=== PATIENT | female | born 1975 | race Caucasian/White ===

== ENCOUNTER 2018-01-04 17:10 | Emergency (ER) | payer OTHER ==
[~2018-01-04] VITALS: Ht 157.5 cm; Wt 96.0 kg
[2018-01-04 19:43] LABS: APPEARANCE SL.HAZY ((CLEAR)); BILIRUBIN NEGATIVE; BLOOD SMALL; COLOR STRAW ((YELLOW)); GLUCOSE (STRIP) NEGATIVE; KETONES NEGATIVE; LEUKOCYTES LARGE; NITRITE NEGATIVE; PROTEIN (STRIP) NEGATIVE; SPECIFIC GRAVITY 1.003 (1.000-1.030); UROBILINOGEN 0.2 MG/DL (0.2-1.0)
[2018-01-04 21:33] LABS: BACTERIA NONE SEEN /HPF; EPITHELIAL CELLS RARE /HPF; MUCUS NONE SEEN /LPF; WHITE BLOOD CELLS 40-50 /HPF (0-5)
[2018-01-04] MEDS ORDERED: PREDNISONE20 MG PO (22:50)
[2018-01-04] MEDS ORDERED: BENADRYL50 MG PO (22:50)
[2018-01-04] MEDS ORDERED: PEPCID20 MG PO (22:50)
[2018-01-04] MEDS ORDERED: LEVAQUIN500 MG PO (22:50)
[2018-01-04 23:01] VITALS: BP 113/81
== END 2018-01-04 23:04 | disposition home or self-care (01) ==
LOC: EME 17:10
PROVIDERS: Emergency Medicine
DX: T78.40XA Allergy, unspecified, initial encounter (principal); N39.0 Urinary tract infection, site not specified; Z91.030 Bee allergy status; Z90.710 Acquired absence of both cervix and uterus
CPT/HCPCS: 81003; 99281; 99284; J2930; S0028